=== PATIENT | male | born 1970 | race Caucasian/White ===

== ENCOUNTER 2017-05-03 14:25 | Emergency (ER) | payer SELFPAY ==
[2017-05-03] MEDS ORDERED: Ondansetron 4 MG/2 ML SDV IVPUSH ONE (14:43)
[2017-05-03] MEDS ORDERED: HYDROmorphone 1 MG/ML Syringe IVPUSH ONE ×2 (14:43→16:04)
[2017-05-03] MEDS ORDERED: Sodium Chloride 0.9% 10 ML Syringe FLUSH PRN (14:43)
[2017-05-03 15:00] VITALS: BP 149/106
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
--- NOTE | 2017-05-03 15:53 | CT ---
Head CT Technique: Multiple axial sections through the brain were obtained. Intravenous contrast was not utilized. Comparison: No previous intracranial imaging. Findings: Ventricles along with basal cisterns and sulci over the convexities are within normal limits for the patient's age. No abnormal parenchymal densities are seen. No evidence of intracranial hemorrhage. No midline shift or mass effect is seen. Bone window settings were reviewed which shows no discrete calvarial abnormality. Mild mucosal thickening is noted within portions of the ethmoid sinus and frontal sinus. Soft tissue swelling is noted within the right side of the face Impression: 1. Slight sinus findings which are likely incidental and chronic. Mild soft tissue swelling within the right side of the face. 2. No acute intracranial abnormality is identified on noncontrast head CT exam. Diagnostic code #2
--- NOTE | 2017-05-03 15:55 | CT ---
CT facial bones Technique: Multiple axial sections through the facial bones were obtained. Reconstructed coronal and sagittal images were reviewed. Findings: Mild mucosal thickening is seen within portions of the ethmoid and frontal sinuses. No air-fluid levels are seen within the paranasal sinuses. Right and left globes are symmetric. Soft tissue swelling is noted within the right periorbital region and within the right side of the face. No acute facial bone fracture is seen. Impression: 1. Soft tissue swelling as noted above. 2. No acute facial bone fracture is seen. 3. Slight mucosal thickening within the frontal and ethmoid sinuses likely relating to mild chronic sinusitis. Diagnostic code #2
--- NOTE | 2017-05-03 16:00 | CT ---
CT cervical spine Technique: Multiple axial sections were obtained from above C1 inferiorly to the bottom of T1. Reconstructed sagittal and coronal images were reviewed. Findings: Several small calcification seen off the posterior spinous processes which appear to be old. Minimal degenerative change is noted between the dens and anterior arch of C1. Vertebral body heights and disc spaces are maintained. Mastoid sinuses and middle ear cavities are clear. Posterior skull base is intact. No cervical spine fracture is identified. No abnormal subluxation is seen on the reconstructed sagittal images. Impression: 1. Nothing acute is appreciated on CT study of the cervical spine. Diagnostic code #2
--- NOTE | 2017-05-05 19:58 | CR ---
Chest: Two views of the chest were obtained. Comparison: No prior chest x-ray. Heart size and mediastinum are within normal limits. Lungs are clear. Bony structures are unremarkable for the patient's age. Impression: 1. Nothing acute is identified on two-view chest x-ray. Diagnostic code #1
--- NOTE | 2017-05-05 19:58 | CR ---
Left tibia and fibula: AP and lateral views of the left tibia and fibula were obtained. Spur again noted at the attachment of the Achilles tendon to the calcaneus. Joint spaces within the left knee are preserved. No acute fracture or other abnormality is seen. Impression: 1. Incidental calcaneal spur. Nothing acute is appreciated on left tibia and fibula study. Diagnostic code #2
--- NOTE | 2017-05-05 19:59 | CR ---
Left ankle: Four views of the left ankle were obtained. Comparison: No previous left ankle study. Spur noted at the attachment of the Achilles tendon to the calcaneus. Ankle mortise is symmetric. No acute fracture or other bony abnormality is identified. Impression: 1. Spur at the attachment of the Achilles tendon to the calcaneus. 2. Nothing acute is identified on left ankle study. Diagnostic code #2
== END 2017-05-03 17:35 | disposition home or self-care (01) ==
LOC: JD.ED 14:25
DX: S81.812A Laceration without foreign body, left lower leg, initial encounter (principal); S00.81XA Abrasion of other part of head, initial encounter; F17.210 Nicotine dependence, cigarettes, uncomplicated; V27.4XXA Motorcycle driver injured in collision with fixed or stationary object in traffic accident, initial encounter
CPT/HCPCS: 36415; 70450; 70486; 71020; 72125; 73590; 73610; 80048; 81003; 85025; 96374; 96375; 96376; 99285; J1170; J2405; J7050; 99283

== ENCOUNTER 2019-04-20 08:38 | Day surgery (SDC) | payer SELFPAY ==
[~2019-04-20 08:38] MED LIST: Lactated Ringers 1,000 ML IV SCH; Lidocaine 1%/Sod Bicarbonate in NS 8.4% 1 ML Syringe IDERM PRN; Sodium Chloride 0.9% 10 ML Syringe FLUSH PRN
[2019-04-20] MEDS ORDERED: Propofol 200 MG/20 ML SDV ONE ×5 (10:54→13:05)
[2019-04-20] MEDS ORDERED: Lidocaine 1% 4 ML ONE (10:54)
[2019-04-20] MEDS ORDERED: Albuterol 0.083% 2.5 MG/3 ML Neb Soln NEB ONE (11:21)
[2019-04-20] MEDS ORDERED: Albuterol 0.083% 2.5 MG/3 ML Neb Soln ONE (11:23)
--- NOTE | 2019-04-20 11:24 | PCM.PREANE ---
Preanesthetic Assessment - Anesthesia/Transfusion/Family Hx Anesthesia History: No Prior Anesthesia Transfusion History: No Prior Transfusion(s) Intubation History: Unknown - Review of Systems General: No Symptoms Pulmonary: Cough (Chronic, Daily smoker), Other Gastrointestinal: Abdominal Pain, Decreased Appetite, Nausea Neurological: Headache, Other Other: Reports: Anxiety (Insomnia) - Physical Assessment NPO Status Date: 04/19/19 NPO Status Time: 23:00 Vital Signs: Last Vital Signs Temp 36.3 C 04/20/19 10:45 Pulse 58 L 04/20/19 10:45 Resp 16 04/20/19 10:45 BP 119/90 04/20/19 10:45 Pulse Ox 98 04/20/19 10:45 Height: 1.85 m Weight: 82.1 kg ASA Class: 2 Mental Status: Alert & Oriented x3 Airway Class: Mallampati = 1 Dentition: Reports: Caries Thyro-Mental Finger Breadths: 3 Mouth Opening Finger Breadths: 3 ROM/Head Extension: Full Lungs: Normal Respiratory Effort (Expiratory wheezing noted ), Wheezing Cardiovascular: Regular Rate, Regular Rhythm - Allergies Allergies/Adverse Reactions: Allergies Allergy/AdvReac Type Severity Reaction Status Date / Time No Known Allergies Allergy Verified 04/17/19 15:07 - Anesthesia Plan Pre-Op Medication Ordered: Anxiolytic - Acknowledgements Anesthesia Type Planned: MAC Pt an Appropriate Candidate for the Planned Anesthesia: Yes Alternatives and Risks of Anesthesia Discussed w Pt/Guardian: Yes Pt/Guardian Understands and Agrees with Anesthesia Plan: Yes PreAnesthesia Questionnaire HEENT History: Reports: Allergic Rhinitis, Impaired Vision Cardiovascular History: Reports: Hypertension, Other (See Below) Other Cardiovascular History: Palpitations, Ectasis Aorta on CTA Respiratory History: Reports: None Gastrointestinal History: Reports: Cholelithiasis, Gastritis, GERD, Other (See Below) Other Gastrointestinal History: Unintentional Weight Loss, Epigastic Pain, Upper Abdominal Pain Genitourinary History: Reports: Other (See Below) Other Genitourinary History: Adrenal Adenoma Musculoskeletal History: Reports: Gout, Neck Pain, Chronic, Other (See Below) Other Musculoskeletal History: Chronic Pain, Neck Injury Neurological History: Reports: Concussion, Migraines Psychiatric History: Reports: Anxiety, Depression, Other (See Below) Other Psychiatric History: Alcohol abuse, Tobacco dependence, THC dependence, Insomnia Endocrine/Metabolic History: Reports: Other (See Below) Other Endocrine/Metabolic History: Unintentional weight loss Hematologic History: Reports: Other (See Below) Other Hematologic History: Leukocytosis Immunologic History: Reports: None Oncologic (Cancer) History: Reports: Other (See Below) Other Oncologic History: Adrenal Adenoma Dermatologic History: Reports: None - Past Surgical History Head Surgeries/Procedures: Reports: None HEENT Surgical History: Reports: Tonsillectomy Cardiovascular Surgical History: Reports: None Respiratory Surgical History: Reports: None GI Surgical History: Reports: Cholecystectomy, Hernia Repair/Other, Other (See Below) Other GI Surgeries/Procedures: Umbilical Hernia Male Surgical History: Reports: Vasectomy Neurological Surgical History: Reports: None Musculoskeletal Surgical History: Reports: Other (See Below) Other Musculoskeletal Surgeries/Procedures:: right knee ligament repair, hand surgery Oncologic Surgical History: Reports: None Dermatological Surgical History: Reports: None - SUBSTANCE USE Smoking Status *Q: Current Every Day Smoker Tobacco Use Within Last Twelve Months: Cigarettes Days Per Week of Alcohol Use: 3 Number of Drinks Per Day: 3 Total Drinks Per Week: 9 Recreational Drug Use History: Yes Recreational Drug Type: Reports: Marijuana/Hashish (Daily use for anxiety/ insomnia.) - HOME MEDS Home Medications: Home Meds Ibuprofen 600 mg PO Q6HR PRN 20 Days #100 tablet 02/18/19 [Rx] Omeprazole Magnesium [Prilosec Otc] 20 mg PO BID 02/18/19 [History] Ondansetron [Zofran] 8 mg PO Q8H PRN 02/18/19 [History] Acetaminophen [Tylenol] 650 mg PO Q4H PRN 04/17/19 [History] Naproxen Sodium [Aleve] 440 mg PO DAILY PRN 04/17/19 [History] Promethazine [Phenergan] 25 mg PO DAILY PRN 04/17/19 [History] Sertraline [Zoloft] 50 mg PO DAILY 04/17/19 [History] Sucralfate [Carafate] 1 gm PO DAILY 04/17/19 [History] Zolpidem Tartrate [Ambien] 5 mg PO BEDTIME PRN 04/17/19 [History] traMADol [Ultram] 50 mg PO Q6H PRN 04/17/19 [History] - CURRENT (IN HOUSE) MEDS Current Meds: Current Medications Lactated Ringer's (Ringers, Lactated) 1,000 mls @ 125 mls/hr IV ASDIRECTED TERRIE Stop: 04/20/19 23:00 Lidocaine/Sodium Bicarbonate (Buffered Lidocaine 1% In Ns 8.4%) 0.25 ml IDERM ONETIME PRN PRN Reason: Prior to IV Start Stop: 04/20/19 18:00 Sodium Chloride (Saline Flush) 10 ml FLUSH ASDIRECTED PRN PRN Reason: Keep Vein Open Stop: 04/20/19 18:00 Discontinued Medications Lidocaine HCl (Xylocaine-Mpf 1%) Confirm Administered Dose 4 mls @ as directed .ROUTE .STK-MED ONE Stop: 04/20/19 10:55 Propofol (Diprivan 20 Ml) Confirm Administered Dose 200 mg .ROUTE .STK-MED ONE Stop: 04/20/19 10:55
[2019-04-20] MEDS ORDERED: Midazolam Oral Soln 10 MG/5 ML Oral Syringe ONE (11:27)
[2019-04-20] MEDS ORDERED: fentaNYL 100 MCG/2 ML SDV ONE ×2 (11:28→13:04)
[2019-04-20] MEDS ORDERED: Ketamine 500 mg/10 ML MDV ONE (11:28)
[2019-04-20] MEDS ORDERED: Midazolam 1 MG/ML 2 ML SDV ONE (11:28)
[2019-04-20] MEDS ORDERED: Ondansetron 4 MG/2 ML SDV ONE (13:29)
--- NOTE | 2019-04-20 13:43 | PCM48HPAN ---
Post Anesthesia Note - EVALUATION WITHIN 48HRS OF ANESTHETIC Vital Signs in Normal Range: Yes Patient Participated in Evaluation: Yes Respiratory Function Stable: Yes Airway Patent: Yes Cardiovascular Function Stable: Yes Hydration Status Stable: Yes Pain Control Satisfactory: Yes Nausea and Vomiting Control Satisfactory: Yes Mental Status Recovered: Yes Vital Signs: Last Vital Signs
[2019-04-20 14:55] VITALS: BP 148/97; PULSE 52
--- NOTE | 2019-04-20 21:02 | OR ---
DATE OF OPERATION: 04/20/2019 SURGEON: Zita Godfrey MD PREOPERATIVE DIAGNOSIS: 1. Dysphagia. 2. Change in bowel habits. POSTOPERATIVE DIAGNOSIS: 1. Hiatal hernia, gastroesophageal junction scarring, otherwise normal esophagus. 2. Colonic polyps. OPERATION PERFORMED: 1. Esophagogastroduodenoscopy with biopsies. 2. Colonoscopy with polypectomy. 3. Hemorrhoid banding. ANESTHESIA: Monitored anesthesia. ESTIMATED BLOOD LOSS: Minimal. INDICATIONS AND CONSENT: The patient is a 48-year-old male who has developed epigastric pain, nausea, vomiting, and dysphagia for the past 7 months. Symptoms have been progressively getting worse. He has tried PPIs without any significant relief; therefore, he presented for evaluation of these symptoms. At the same time, the patient has been having alternating constipation and diarrhea. This was concerning for developing colonic problem. Therefore, EGD as well as colonoscopy were recommended for initial evaluation. The patient agreed to proceed with this procedure. After extensive discussion of risks, benefits, and alternatives, informed consent was obtained. DESCRIPTION OF PROCEDURE: The patient was taken to the procedure room, placed in left lateral decubitus position. Following induction of monitored anesthesia, we began the procedure with esophagogastroduodenoscopy. Scope was advanced through the vocal cords into the esophagus. The upper esophagus was notable for a visible aortic knob in the mid esophagus. There were no strictures. This was easily traversed all the way down into the stomach and to duodenum. The second portion of the duodenum was visualized. There were no abnormalities. Scope was withdrawn back into the antrum. The antrum was slightly erythematous. Therefore, a biopsy was taken for evaluation. Upon retroflexion, there was a medium sized hiatal hernia, and the stomach was sliding into the chest. This area had a whitish plaque on it resembling scar tissue from prior circumferential ulcer. This area was biopsied for pathology. Then, the scope was withdrawn slowly into the distal esophagus. There was no overt concern for esophagitis. However, this area was also biopsied for confirmation with pathology. Then the scope was slowly withdrawn, and the rest of the esophagus appeared to be normal. The patient was then prepared for colonoscopy. Colonoscope was brought into the field. Digital rectal exam revealed grade 3 hemorrhoids as well as a few skin tags. Then the scope was introduced into the rectum and advanced slowly all the way into the cecum without much difficulty. Upon withdrawal of the colonoscope, there was 1 polyp in the ascending colon that was biopsied with cold forceps as well as 1 rectal polyp likewise biopsied with cold forceps. The patient's prep was just adequate, and it required use of a lot of irrigation to be able to clearly visualize the mucosa. Upon retroflexion, there were significant hemorrhoids. Therefore, we proceeded with hemorrhoid banding. To do the hemorrhoid banding, the suction videogame tester was brought into the field. Speculum was inserted into the anal canal isolating the hemorrhoids. Suction banding was used to band the 2 hemorrhoids in the location of the left lateral and right posterior, and then the speculum was withdrawn. There was no immediate complication. This marked the end of the procedure. The patient was awoken from monitored anesthesia and taken to the recovery room for further recovery. The patient was instructed to be aware of short and long-term bleeding as well as pelvic infection and was instructed to take stool softeners, continue PPIs, sitz bath as well as Tylenol and Motrin for rectal discomfort. The patient will follow up with me in 2 weeks to discuss results of the pathologic specimens. Impression: - Antritis - Medium sized hiatal hernia with scarring. Biopsied - Mild esophagitis - Biopsied - One 0.6 mm polyp in cecum. Biopsied - One rectal polyp. Biopsied - Grade III hemorrhoids. Banded x 2 MMODAL /[id number] MTDD
== END 2019-04-20 14:42 | disposition home or self-care (01) ==
LOC: JD.SDS 08:38
PROVIDERS: ATTEND Surgery
DX: R19.5 Other fecal abnormalities (principal); K29.50 Unspecified chronic gastritis without bleeding; D12.4 Benign neoplasm of descending colon; K62.1 Rectal polyp; K44.9 Diaphragmatic hernia without obstruction or gangrene; K21.0 Gastro-esophageal reflux disease with esophagitis; M25.50 Pain in unspecified joint; I10 Essential (primary) hypertension; M10.9 Gout, unspecified; F41.9 Anxiety disorder, unspecified; F32.9 Major depressive disorder, single episode, unspecified; F17.210 Nicotine dependence, cigarettes, uncomplicated; Z79.899 Other long term (current) drug therapy
CPT/HCPCS: 43239; 45380; 45398; 94640; J2001; J2250; J2405; J2704; J3010; J7120; A9270-GY

== ENCOUNTER 2020-06-07 08:37 | Emergency (ER) | payer BC, OTHER ==
[2020-06-07 09:11] VITALS: BP 130/83
--- NOTE | 2020-06-07 09:23 | EDM.PDOC ---
ED HPI GENERAL MEDICAL PROBLEM - General Chief Complaint: Fever Stated Complaint: FEVER/COVID SYMPTOMS Time Seen by Provider: 06/07/20 09:14 Source of Information: Reports: Patient History Limitations: Reports: No Limitations - History of Present Illness INITIAL COMMENTS - FREE TEXT/NARRATIVE: 49-year-old male presents to the ED with acute onset of fever chills headache myalgia particular involving his lower back with loss of appetite and diarrhea stools x3 days. Paroxysmal minimally productive cough. No hemoptysis. Fever has been controlled with Tylenol and Motrin. Feels weak, lightheaded. Sleeping poorly due to back pain and cough. Objective dyspnea even at rest. 02 sats 97 to 98% on the monitor. Clinically patient has COVID-19 symptoms. Temperature of 102.3 last night 1-1.7 this morning. Last Tylenol dosage was about 0500 hrs. today. Onset: Sudden Onset Date: 06/04/20 Duration: Day(s):, Constant, Getting Worse Location: Reports: Chest, Generalized (Neurolyse myalgia and headache.), Other (Is minimal nonproductive cough rectocele with yellow diarrhea stools.) Quality: Reports: Ache (Generalized myalgia) Severity: Moderate Improves with: Reports: Medication (Along helps bring down the fever somewhat.) Worsens with: Reports: Other (TBD.) Treatments OUTSOLE BEVELER: Reports: Acetaminophen Headache Pain Score (Numeric/FACES): 4 - Related Data Allergies Allergy/AdvReac Type Severity Reaction Status Date / Time No Known Allergies Allergy Verified 04/17/19 15:07 Home Meds: Home Meds Ibuprofen 600 mg PO Q6HR PRN 20 Days #100 tablet 02/18/19 [Rx] Omeprazole Magnesium [Prilosec Otc] 20 mg PO BID 02/18/19 [History] Acetaminophen [Tylenol] 650 mg PO Q4H PRN 04/17/19 [History] Naproxen Sodium [Aleve] 440 mg PO DAILY PRN 04/17/19 [History] Promethazine [Phenergan] 25 mg PO DAILY PRN 04/17/19 [History] Sertraline [Zoloft] 50 mg PO DAILY 04/17/19 [History] Sucralfate [Carafate] 1 gm PO DAILY 04/17/19 [History] Zolpidem Tartrate [Ambien] 5 mg PO BEDTIME PRN 04/17/19 [History] traMADol [Ultram] 50 mg PO Q6H PRN 04/17/19 [History] Hydrocodone/Chlorphen P-Stirex [Hydrocodone-Chlorphen ER Susp] 5 ml PO Q12H PRN #60 ml 06/07/20 [Rx] Ondansetron [Zofran] 4 mg BUCCAL Q6H PRN #12 tab 06/07/20 [Rx] dexAMETHasone [Dexamethasone] 4 mg PO BID #10 tab 06/07/20 [Rx] Past Medical History HEENT History: Reports: Allergic Rhinitis, Impaired Vision Cardiovascular History: Reports: Hypertension, Other (See Below) Other Cardiovascular History: Palpitations, Ectasis Aorta on CTA Respiratory History: Reports: None Gastrointestinal History: Reports: Cholelithiasis, Gastritis, GERD, Other (See Below) Other Gastrointestinal History: Unintentional Weight Loss, Epigastic Pain, Upper Abdominal Pain Genitourinary History: Reports: Other (See Below) Other Genitourinary History: Adrenal Adenoma Musculoskeletal History: Reports: Gout, Neck Pain, Chronic, Other (See Below) Other Musculoskeletal History: Chronic Pain, Neck Injury Neurological History: Reports: Concussion, Migraines Psychiatric History: Reports: Anxiety, Depression, Other (See Below) Other Psychiatric History: Alcohol abuse, Tobacco dependence, THC dependence, Insomnia Endocrine/Metabolic History: Reports: Other (See Below) Other Endocrine/Metabolic History: Unintentional weight loss Hematologic History: Reports: Other (See Below) Other Hematologic History: Leukocytosis Immunologic History: Reports: None Oncologic (Cancer) History: Reports: Other (See Below) Other Oncologic History: Adrenal Adenoma Dermatologic History: Reports: None - Past Surgical History Head Surgeries/Procedures: Reports: None HEENT Surgical History: Reports: Tonsillectomy Cardiovascular Surgical History: Reports: None Respiratory Surgical History: Reports: None GI Surgical History: Reports: Cholecystectomy, Hernia Repair/Other, Other (See Below) Other GI Surgeries/Procedures: Umbilical Hernia Male Surgical History: Reports: Vasectomy Neurological Surgical History: Reports: None Musculoskeletal Surgical History: Reports: Other (See Below) Other Musculoskeletal Surgeries/Procedures:: right knee ligament repair, hand surgery Oncologic Surgical History: Reports: None Dermatological Surgical History: Reports: None Social & Family History - Family History Family Medical History: Noncontributory - Caffeine Use Caffeine Use: Reports: Coffee, Soda Other Caffeine Use: States one cup of coffee and one soda per day. - Living Situation & Occupation Living situation: Reports: with Significant Other Occupation: Employed ED ROS GENERAL - Review of Systems Review Of Systems: See Below Constitutional: Reports: Fever, Chills, Malaise, Weakness, Fatigue, Decreased Appetite HEENT: Reports: Throat Pain (Mild.) Respiratory: Reports: Shortness of Breath, Wheezing, Cough (No wheeze.), Sputum ( Ox is mild minimally productive cough). Denies: Hemoptysis ( no white sputum production) Cardiovascular: Reports: Chest Pain (Heaviness upper anterior chest.), Dyspnea on Exertion, Lightheadedness. Denies: Blood Pressure Problem, Claudication, Orthopnea Endocrine: Reports: Fatigue GI/Abdominal: Reports: Diarrhea, Decreased Appetite, Nausea (Yellow watery stools.) : Reports: Other ( urine is darker in color than normal.) Musculoskeletal: Reports: Muscle Pain (Generalized myalgia.) Skin: Reports: No Symptoms Neurological: Reports: Dizziness, Headache, Weakness Psychiatric: Reports: Depression Hematologic/Lymphatic: Reports: No Symptoms Immunologic: Reports: No Symptoms ED EXAM, GENERAL - Physical Exam Exam: See Below Exam Limited By: No Limitations General Appearance: Alert, WD/WN, No Apparent Distress, Other (He is generally flushed in appearance and does feel warm to palpation.) Eye Exam: Bilateral Eye: Normal Inspection, PERRL Throat/Mouth: Normal Inspection, Normal Lips, Normal Teeth, Normal Oropharynx Head: Atraumatic, Normocephalic Neck: Normal Inspection, Supple, Non-Tender, Full Range of Motion. No: Lymphadenopathy (L), Lymphadenopathy (R) Respiratory/Chest: Lungs Clear, Normal Breath Sounds (Kidney at rest.), No Accessory Muscle Use, Respiratory Distress Cardiovascular: Normal Peripheral Pulses, Regular Rate, Rhythm, No Edema, No Gallop, No Murmur Peripheral Pulses: 3+: Carotid (L), Carotid (R), Posterior Tibial (L), Posterior Tibial (R), Dorsalis Pedis (L), Dorsalis Pedis (R) GI/Abdominal: Normal Bowel Sounds, Soft, Non-Tender, No Organomegaly, No Abnormal Bruit, No Mass Back Exam: Normal Inspection, Full Range of Motion. No: CVA Tenderness (L), CVA Tenderness (R) Extremities: Normal Inspection, Normal Range of Motion, Non-Tender, No Pedal Edema Neurological: Alert, Oriented, CN II-XII Intact, Normal Cognition Psychiatric: Normal Affect, Normal Mood Skin Exam: Warm, Dry, Intact, Normal Color, No Rash Course - Vital Signs Last Recorded V/S: Last Vital Signs Temp 36.6 C 06/07/20 11:45 Pulse 75 06/07/20 11:45 Resp 20 06/07/20 11:45 BP 130/83 06/07/20 08:55 Pulse Ox 94 L 06/07/20 11:45 - Orders/Labs/Meds Orders: Active Orders 24 hr Category Date Time Status Chest 1V Frontal [CR] Stat Exams 06/07/20 09:25 Taken CORONAVIRUS COVID-19 PCR PHL Stat Lab 06/07/20 09:44 Received Labs: Laboratory Tests 06/07/20 06/07/20 06/07/20 Range/Units 09:41 09:41 09:41 WBC 9.85 H (4.23-9.07) K/mm3 RBC 4.58 L (4.63-6.08) M/mm3 Hgb 14.7 (13.7-17.5) gm/dl Hct 43.6 (40.1-51.0) % MCV 95.2 H (79.0-92.2) fl MCH 32.1 (25.7-32.2) pg MCHC 33.7 (32.2-35.5) g/dl RDW Std Deviation 47.6 H (35.1-43.9) fL Plt Count 276 (163-337) K/mm3 MPV 9.2 L (9.4-12.3) fl Neut % (Auto) 77.5 H (34.0-67.9) % Lymph % (Auto) 12.8 L (21.8-53.1) % [place] % (Auto) 6.0 (5.3-12.2) % Eos % (Auto) 2.8 (0.8-7.0) Baso % (Auto) 0.8 (0.1-1.2) % Neut # (Auto) 7.63 H (1.78-5.38) K/mm3 Lymph # (Auto) 1.26 L (1.32-3.57) K/mm3 [place] # (Auto) 0.59 (0.30-0.82) K/mm3 Eos # (Auto) 0.28 (0.04-0.54) K/mm3 Baso # (Auto) 0.08 (0.01-0.08) K/mm3 Sodium 141 (136-145) mEq/L Potassium 3.8 (3.5-5.1) mEq/L Chloride 104 (98-107) mEq/L Carbon Dioxide 27 (21-32) mEq/L Anion Gap 13.8 (5-15) BUN 16 (7-18) mg/dL Creatinine 1.2 (0.7-1.3) mg/dL Est Cr Clr Drug Dosing 85.08 mL/min Estimated GFR (MDRD) > 60 (>60) mL/min BUN/Creatinine Ratio 13.3 L (14-18) Glucose 113 H (74-106) mg/dL Calcium 9.1 (8.5-10.1) mg/dL Ferritin (26-388) ng/ml Total Bilirubin 0.5 (0.2-1.0) mg/dL AST 22 (15-37) U/L ALT 33 (16-63) U/L Alkaline Phosphatase 80 (46-116) U/L Lactate Dehydrogenase 152 (85-227) U/L Troponin I < 0.017 (0.00-0.056) ng/mL C-Reactive Protein 1.1 H* (<1.0) mg/dL Total Protein 6.7 (6.4-8.2) g/dl Albumin 3.5 (3.4-5.0) g/dl Globulin 3.2 gm/dL Albumin/Globulin Ratio 1.1 (1-2) 06/07/20 Range/Units 09:41 WBC (4.23-9.07) K/mm3 RBC (4.63-6.08) M/mm3 Hgb (13.7-17.5) gm/dl Hct (40.1-51.0) % MCV (79.0-92.2) fl MCH (25.7-32.2) pg MCHC (32.2-35.5) g/dl RDW Std Deviation (35.1-43.9) fL Plt Count (163-337) K/mm3 MPV (9.4-12.3) fl Neut % (Auto) (34.0-67.9) % Lymph % (Auto) (21.8-53.1) % [place] % (Auto) (5.3-12.2) % Eos % (Auto) (0.8-7.0) Baso % (Auto) (0.1-1.2) % Neut # (Auto) (1.78-5.38) K/mm3 Lymph # (Auto) (1.32-3.57) K/mm3 [place] # (Auto) (0.30-0.82) K/mm3 Eos # (Auto) (0.04-0.54) K/mm3 Baso # (Auto) (0.01-0.08) K/mm3 Sodium (136-145) mEq/L Potassium (3.5-5.1) mEq/L Chloride (98-107) mEq/L Carbon Dioxide (21-32) mEq/L Anion Gap (5-15) BUN (7-18) mg/dL Creatinine (0.7-1.3) mg/dL Est Cr Clr Drug Dosing mL/min Estimated GFR (MDRD) (>60) mL/min BUN/Creatinine Ratio (14-18) Glucose (74-106) mg/dL Calcium (8.5-10.1) mg/dL Ferritin 66 (26-388) ng/ml Total Bilirubin (0.2-1.0) mg/dL AST (15-37) U/L ALT (16-63) U/L Alkaline Phosphatase (46-116) U/L Lactate Dehydrogenase (85-227) U/L Troponin I (0.00-0.056) ng/mL C-Reactive Protein (<1.0) mg/dL Total Protein (6.4-8.2) g/dl Albumin (3.4-5.0) g/dl Globulin gm/dL Albumin/Globulin Ratio (1-2) Meds: Medications Discontinued Medications Generic Name Dose Route Start Last Admin Trade Name Freq PRN Reason Stop Dose Admin Acetaminophen 975 mg 06/07/20 09:33 06/07/20 09:58 Tylenol PO 06/07/20 09:34 975 mg ONETIME ONE Administration Dexamethasone 6 mg 06/07/20 11:20 06/07/20 11:36 Dexamethasone IVPUSH 06/07/20 11:21 6 mg ONETIME ONE Administration Dextrose/Lactated Ringer's 1,000 mls @ 999 mls/hr 06/07/20 09:30 06/07/20 09:41 Dextrose 5%-Lactated Ringers IV 999 mls/hr ASDIRECTED TERRIE Administration Ondansetron HCl 4 mg 06/07/20 09:32 06/07/20 10:00 Zofran IVPUSH 06/07/20 09:33 4 mg ONETIME ONE Administration - Radiology Interpretation Free Text/Narrative:: 49-year-old male presents to the ED with a 3-1/2-day history of acute illness with high fever, chills, headache, paroxysmal minimally productive cough. Associated anorexia and yellow diarrhea stools. Generalized weakness and lightheadedness. He is a smoker but has cut back and is currently using Nicorette gum. Clinically has signs and symptoms of COVID-19 illness. O2 sats are 97 to 98% on room air. COVID-19 screen will be done and sent to [facility] for evaluation. He will receive IV fluids D5 Ringer's lactate at open. Routine labs performed. Given Zofran 4 mg IV for nausea relief. Toradol 30 mg IV for headache and body ache relief. Now 975 mg p.o. for fever. - Re-Assessments/Exams Free Text/Narrative Re-Assessment/Exam: 06/07/20 10:36 White count is 9.85 with 77.5% neutrophils. Hemoglobin is 14.7 with hematocrit of 43.6. MCV is minimally elevated at 95.2. Platelet count is normal at 276,000. LDH is normal at 152 and troponin I is less than 0.017. Chest x-ray done portably reveals early groundglass appearance both lower lobes compatible with developing viral pneumonia. 06/07/20 11:08 Sodium is 141 with a potassium of 3.8. Chloride 104 with a bicarb of 27. Anion gap is 13.8. BUN is 16 with a creatinine of 1.2 and a GFR greater than 60. Glucose is 113 calcium is 9.1. Serum ferritin is normal at this time 66. Liver function is normal LDH is 152 troponin I is less than 0.017. C-reactive protein is 1.1. Total protein is 6.7. He will given Dexamethasone 6 mg IV. Be to discharge him home on dexamethasone 4 mg twice daily for 4 more days. Zofran 4 mg sublingual every 4 hours as needed for nausea relief. He is to stay on a clear fluid diet to prevent further diarrhea and no dairy product apple juice or grape juice to be taken orally until diarrhea has abated. He believes he has a pulse oximeter at home and will start to check his blood pressures. Note given to excuse him from work for the next 10 days. Departure - Departure Time of Disposition: 11:20 Disposition: Home, Self-Care 01 Condition: Fair Clinical Impression: COVID-19 - Discharge Information *PRESCRIPTION DRUG MONITORING PROGRAM REVIEWED*: Not Applicable *COPY OF PRESCRIPTION DRUG MONITORING REPORT IN PATIENT TEJAS: Not Applicable Prescriptions: dexAMETHasone [Dexamethasone] 4 mg PO BID #10 tab Hydrocodone/Chlorphen P-Stirex [Hydrocodone-Chlorphen ER Susp] 5 ml PO Q12H PRN #60 ml PRN Reason: Cough relief Ondansetron [Zofran] 4 mg BUCCAL Q6H PRN #12 tab PRN Reason: nausea or vomiting Instructions: COVID-19 Frequently Asked Questions, COVID-19, COVID-19: How to Protect Yourself and Others - [facility] Referrals: Velma Dejesus [employer] [Primary Care Provider] - Forms: ED Department Discharge, ED Return to Work/School Form Additional Instructions: Evaluation in the emergency room today in regards to development of fever, chills, headache, diffuse body ache associated with nausea and diarrhea with paroxysmal minimally productive cough. These are all signs and symptoms of COVID-19 illness. Chest x-ray done through the ED suggest a very early infiltrate developing in both lower lobes compatible with a viral pneumonitis. COVID-19 screen has been carried out and sent to public health and results will be available tomorrow. You should expect a phone call likely from us in the ED as well as public health tomorrow. Lab tests proved to be negative for any heart related illness. You were given a liter of IV fluids while in the ED. You were started on steroids dexamethasone 6 mg given intravenously. You will need to start oral dexamethasone tablets tomorrow morning 4 mg twice daily for the next 5 days. Cough syrup is to be Tussionex 5 mils every 12 hours as necessary for cough relief. Ideally 5 mils about an hour before bedtime will help relieve congestion and cough overnight. Zofran 4 mg under the tongue every 4-6 hours necessary for nausea relief. This is so that you can hopefully retain clear fluids such as Gatorade or Powerade ideally 2 bottles at least daily until appetite comes back. Should avoid all dairy products and no apple juice or grape juice until stools are formed back up. Off work for the next 10 days due to current illness as you are considered contagious to others for a minimum of 10 days considering that this is likely day 3-4 of current illness. Sepsis Event Note (ED) - Evaluation Sepsis Screening Result: No Definite Risk - Focused Exam Vital Signs: Vital Signs Temp Temp Pulse Resp BP Pulse Ox 06/07/20 11:45 36.6 C 75 20 94 L 06/07/20 09:58 97.4 C H 06/07/20 08:55 36.6 C 72 24 H 130/83 98 - My Orders Last 24 Hours: My Active Orders 06/07/20 09:25 Chest 1V Frontal [CR] Stat 06/07/20 09:44 CORONAVIRUS COVID-19 PCR PHL Stat - Assessment/Plan Last 24 Hours: My Active Orders 06/07/20 09:25 Chest 1V Frontal [CR] Stat 06/07/20 09:44 CORONAVIRUS COVID-19 PCR PHL Stat
[2020-06-07] MEDS ORDERED: Dextrose 5%-Lactated Ringers 1,000 ML IV SCH (09:30)
[2020-06-07] MEDS ORDERED: Ondansetron 4 MG/2 ML SDV IVPUSH ONE (09:32)
[2020-06-07] MEDS ORDERED: Acetaminophen 325 MG Tab PO ONE (09:33)
[2020-06-07] MEDS ORDERED: Dexamethasone 10 MG/ML SDV IVPUSH ONE (11:20)
[2020-06-07 11:51] VITALS: PULSE 75
--- NOTE | 2020-06-09 15:13 | CR ---
PROCEDURE INFORMATION: Exam: XR Chest, 1 View Exam date and time: 06/07/2020 9:23 AM Age: 49 years old Clinical indication: Right-sided chest pain; Patient HX: Fever, cough, suspected covid onset 2019 with right posterior cp TECHNIQUE: Imaging protocol: XR of the chest Views: 1 view. COMPARISON: OT Chest 1V Frontal 02/27/2019 10:54 PM FINDINGS: Lungs: Unremarkable. No consolidation. Pleural space: Unremarkable. No pleural effusion. No pneumothorax. Heart/Mediastinum: Unremarkable. No cardiomegaly. 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 IMPRESSION: No acute findings. Thank you for allowing us to participate in the care of your patient. Dictated and Authenticated by: Ernestina Hayden MD 06/07/2020 11:37 AM Central Time ([place] & [place]) [email or web address]
== END 2020-06-07 11:45 | disposition home or self-care (01) ==
LOC: JD.ED 08:37
DX: U07.1 COVID-19 (principal); I10 Essential (primary) hypertension; K21.9 Gastro-esophageal reflux disease without esophagitis; F41.9 Anxiety disorder, unspecified; F32.9 Major depressive disorder, single episode, unspecified; G43.909 Migraine, unspecified, not intractable, without status migrainosus; F17.220 Nicotine dependence, chewing tobacco, uncomplicated; Z79.899 Other long term (current) drug therapy; Z90.49 Acquired absence of other specified parts of digestive tract
CPT/HCPCS: 36415; 71045; 80053; 82728; 83615; 84484; 85025; 86140; 87635; 96374; 96375; 99285; A9270; J1100; J2405; J7121; 99284; U0002

== ENCOUNTER 2021-04-21 10:11 | Emergency (ER) | payer SELFPAY ==
[2021-04-21 10:19] VITALS: BP 139/115; PULSE 92
[2021-04-21] MEDS ORDERED: HYDROmorphone 0.5 MG/0.5 ML Syringe IVPUSH ONE (11:36)
[2021-04-21] MEDS ORDERED: cefTRIAXone 2 GM in Sodium Chloride 0.9% 100 ML IV ONE (11:36)
--- NOTE | 2021-04-21 11:45 | EDM.PDOC ---
ED HPI GENERAL MEDICAL PROBLEM - General Chief Complaint: Lower Extremity Injury/Pain Stated Complaint: KNEE PAIN Time Seen by Provider: 04/21/21 11:29 Source of Information: Reports: Patient, RN Notes Reviewed History Limitations: Reports: No Limitations - History of Present Illness INITIAL COMMENTS - FREE TEXT/NARRATIVE: Patient is a 50-year-old male who presents to the ER for the evaluation of bilateral knee pain. Patient works with concrete, and states that something went wrong with the slap that he was working on, and he had to kneel down quickly onto the slightly hardened wet cement, to try to fix this lab. This was Saturday. Notes that he had bilateral pain to his knees, that developed almost instantly after getting up due to the contact of the cement. There has been increasing redness and swelling that has been associated with this over the last few days. He has been using topical antibiotic treatments, and other rinses at home, but notes it does not seem to be helping. Patient states he has had this issue once in the past, and got "blood poisoning". He has had no fevers or chills, cough or shortness of breath, nausea/vomiting/diarrhea. He states there is pain in both knees, he had some leftover hydrocodone from a different injury, and has been taking some of those and notes that it has helped with the pain. Bilateral knees are both red, semi-swollen, with wounds in multiple stages of healing, they do appear to be contact frost from the cement. This does take up the whole entire anterior surface of both knees for the most part. Bilateral Knee Pain Score (Numeric/FACES): 8 - Related Data Allergies Allergy/AdvReac Type Severity Reaction Status Date / Time No Known Allergies Allergy Verified 04/21/21 10:20 Home Meds: Home Meds Ibuprofen 600 mg PO Q6HR PRN 20 Days #100 tablet 02/18/19 [Rx] Omeprazole Magnesium [Prilosec Otc] 20 mg PO BID 02/18/19 [History] Acetaminophen [Tylenol] 650 mg PO Q4H PRN 04/17/19 [History] Naproxen Sodium [Aleve] 440 mg PO DAILY PRN 04/17/19 [History] Promethazine [Phenergan] 25 mg PO DAILY PRN 04/17/19 [History] Sertraline [Zoloft] 50 mg PO DAILY 04/17/19 [History] Sucralfate [Carafate] 1 gm PO DAILY 04/17/19 [History] Zolpidem Tartrate [Ambien] 5 mg PO BEDTIME PRN 04/17/19 [History] traMADol [Ultram] 50 mg PO Q6H PRN 04/17/19 [History] Hydrocodone/Chlorphen P-Stirex [Hydrocodone-Chlorphen ER Susp] 5 ml PO Q12H PRN #60 ml 06/07/20 [Rx] Ondansetron [Zofran] 4 mg BUCCAL Q6H PRN #12 tab 06/07/20 [Rx] dexAMETHasone [Dexamethasone] 4 mg PO BID #10 tab 06/07/20 [Rx] Doxycycline [Vibramycin] 100 mg PO BID 10 Days #20 tab 04/21/21 [Rx] Hydrocodone/Acetaminophen [HYDROcodone-Acetaminophen 10-325 MG] 1 tab PO Q6H PRN #15 tablet 04/21/21 [Rx] Past Medical History HEENT History: Reports: Allergic Rhinitis, Impaired Vision Cardiovascular History: Reports: Hypertension, Other (See Below) Other Cardiovascular History: Palpitations, Ectasis Aorta on CTA Respiratory History: Reports: None Gastrointestinal History: Reports: Cholelithiasis, Gastritis, GERD, Other (See Below) Other Gastrointestinal History: Unintentional Weight Loss, Epigastic Pain, Upper Abdominal Pain Genitourinary History: Reports: Other (See Below) Other Genitourinary History: Adrenal Adenoma Musculoskeletal History: Reports: Gout, Neck Pain, Chronic, Other (See Below) Other Musculoskeletal History: Chronic Pain, Neck Injury Neurological History: Reports: Concussion, Migraines Psychiatric History: Reports: Anxiety, Depression, Other (See Below) Other Psychiatric History: Alcohol abuse, Tobacco dependence, THC dependence, Insomnia Endocrine/Metabolic History: Reports: Other (See Below) Other Endocrine/Metabolic History: Unintentional weight loss Hematologic History: Reports: Other (See Below) Other Hematologic History: Leukocytosis Immunologic History: Reports: None Oncologic (Cancer) History: Reports: Other (See Below) Other Oncologic History: Adrenal Adenoma Dermatologic History: Reports: None - Infectious Disease History Infectious Disease History: Reports: Chicken Pox - Past Surgical History Head Surgeries/Procedures: Reports: None HEENT Surgical History: Reports: Tonsillectomy Cardiovascular Surgical History: Reports: None Respiratory Surgical History: Reports: None GI Surgical History: Reports: Cholecystectomy, Hernia Repair/Other, Other (See Below) Other GI Surgeries/Procedures: Umbilical Hernia Male Surgical History: Reports: Vasectomy Neurological Surgical History: Reports: None Musculoskeletal Surgical History: Reports: Other (See Below) Other Musculoskeletal Surgeries/Procedures:: right knee ligament repair, hand surgery Oncologic Surgical History: Reports: None Dermatological Surgical History: Reports: None Social & Family History - Family History Family Medical History: No Pertinent Family History - Tobacco Use Tobacco Use Status *Q: Current Every Day Tobacco User Years of Tobacco use: 35 Packs/Tins Daily: 0.5 Second Hand Smoke Exposure: No - Caffeine Use Caffeine Use: Reports: Coffee Other Caffeine Use: States one cup of coffee and one soda per day. - Recreational Drug Use Recreational Drug Use: No - Living Situation & Occupation Living situation: Reports: with Significant Other Occupation: Employed Review of Systems - Review of Systems Review Of Systems: Comprehensive ROS is negative, except as noted in HPI. ED EXAM, GENERAL - Physical Exam Exam: See Below Exam Limited By: No Limitations General Appearance: Alert, WD/WN, No Apparent Distress Respiratory/Chest: No Respiratory Distress, Lungs Clear, Normal Breath Sounds, No Accessory Muscle Use, Chest Non-Tender Cardiovascular: Normal Peripheral Pulses, Regular Rate, Rhythm, No Edema Extremities: Normal Range of Motion, Normal Capillary Refill, Increased Warmth (to anterior bilateral knees), Redness (to anterior bilateral knees) Neurological: Alert, Oriented, Normal Cognition, No Motor/Sensory Deficits Psychiatric: Normal Affect, Normal Mood Skin Exam: Warm, Dry, Erythema (to anterior bilateral knees), Increased Warmth (to anterior bilateral knees) Course - Vital Signs Last Recorded V/S: Last Vital Signs Temp 97.7 F 04/21/21 10:18 Pulse 92 04/21/21 10:18 Resp 20 04/21/21 10:18 BP 139/115 H 04/21/21 10:18 Pulse Ox 93 L 04/21/21 10:18 - Orders/Labs/Meds Orders: Active Orders 24 hr Category Date Time Status BLOOD CULTURE [MREF] Stat Lab 04/21/21 10:30 Received BLOOD CULTURE [MREF] Stat Lab 04/21/21 10:40 Received cefTRIAXone [Rocephin] 2 gm Med 04/21/21 11:36 Ordered Sodium Chloride 0.9% [Normal Saline] 100 ml IV ONETIME Blood Culture x2 Reflex Set [OM.PC] Stat Oth 04/21/21 10:44 Ordered Medication Orders Ceftriaxone Sodium 2 gm/ (Sodium Chloride) 100 mls @ 200 mls/hr IV ONETIME ONE Stop: 04/21/21 12:05 Labs: Laboratory Tests 04/21/21 04/21/21 04/21/21 Range/Units 10:30 10:30 10:30 WBC 13.19 H (4.23-9.07) K/mm3 RBC 4.64 (4.63-6.08) M/mm3 Hgb 14.9 (13.7-17.5) gm/dl Hct 43.9 (40.1-51.0) % MCV 94.6 H (79.0-92.2) fl MCH 32.1 (25.7-32.2) pg MCHC 33.9 (32.2-35.5) g/dl RDW Std Deviation 48.2 H (35.1-43.9) fL Plt Count 286 (163-337) K/mm3 MPV 9.7 (9.4-12.3) fl Neut % (Auto) 74.4 H (34.0-67.9) % Lymph % (Auto) 13.0 L (21.8-53.1) % Butler % (Auto) 9.1 (5.3-12.2) % Eos % (Auto) 2.6 (0.8-7.0) Baso % (Auto) 0.7 (0.1-1.2) % Neut # (Auto) 9.83 H (1.78-5.38) K/mm3 Lymph # (Auto) 1.71 (1.32-3.57) K/mm3 Butler # (Auto) 1.20 H (0.30-0.82) K/mm3 Eos # (Auto) 0.34 (0.04-0.54) K/mm3 Baso # (Auto) 0.09 H (0.01-0.08) K/mm3 Sodium 137 (136-145) mEq/L Potassium 4.2 (3.5-5.1) mEq/L Chloride 103 (98-107) mEq/L Carbon Dioxide 25 (21-32) mEq/L Anion Gap 13.2 (5-15) BUN 16 (7-18) mg/dL Creatinine 0.8 (0.7-1.3) mg/dL Est Cr Clr Drug Dosing 126.23 mL/min Estimated GFR (MDRD) > 60 (>60) mL/min BUN/Creatinine Ratio 20.0 H (14-18) Glucose 101 H (70-99) mg/dL Lactic Acid 1.1 (0.4-2.0) mmol/L Calcium 8.5 (8.5-10.1) mg/dL Total Bilirubin 0.4 (0.2-1.0) mg/dL AST 33 (15-37) U/L ALT 32 (16-63) U/L Alkaline Phosphatase 76 (46-116) U/L C-Reactive Protein 4.0 H* (<1.0) mg/dL Total Protein 6.8 (6.4-8.2) g/dl Albumin 3.6 (3.4-5.0) g/dl Globulin 3.2 gm/dL Albumin/Globulin Ratio 1.1 (1-2) Meds: Medications Generic Name Dose Route Start Last Admin Trade Name Freq PRN Reason Stop Dose Admin Ceftriaxone Sodium 2 gm/ 100 mls @ 200 mls/hr 04/21/21 11:36 Sodium Chloride IV 04/21/21 12:05 ONETIME ONE Discontinued Medications Generic Name Dose Route Start Last Admin Trade Name Freq PRN Reason Stop Dose Admin Hydromorphone HCl 0.5 mg 04/21/21 11:36 Hydromorphone 0.5 Mg/0.5 Ml Syringe IVPUSH 04/21/21 11:37 ONETIME ONE - Re-Assessments/Exams Free Text/Narrative Re-Assessment/Exam: 04/21/21 11:43 Patient's labs were taken at time of triage, white count slightly elevated with elevated CRP, his knees do appear to have a cellulitis, with associated suspected contact burn from the concrete. We will go ahead and have the nurse do some wound management to his knee, will give him a dose of IV antibiotics, some pain medicines here, and we will start him on oral antibiotics and have him take pain medications as needed, and try to use ibuprofen, and perform good wound management over the weekend. We will have him take a picture of his knees at this time, so we can track the infectious/healing process. Departure - Departure Time of Disposition: 11:44 Disposition: Home, Self-Care 01 Condition: Good Clinical Impression: Cellulitis of right knee, Cellulitis of left knee Chemical burn of right knee Qualifiers: Encounter type: initial encounter Corrosion degree: unspecified degree Qualified Code(s): T24.421A - Corrosion of unspecified degree of right knee, ini tial encounter Chemical burn of left knee Qualifiers: Encounter type: initial encounter Corrosion degree: unspecified degree Qualified Code(s): T24.422A - Corrosion of unspecified degree of left knee, initial encounter - Discharge Information *PRESCRIPTION DRUG MONITORING PROGRAM REVIEWED*: Yes *COPY OF PRESCRIPTION DRUG MONITORING REPORT IN PATIENT TEJAS: No Prescriptions: Hydrocodone/Acetaminophen [HYDROcodone-Acetaminophen 10-325 MG] 1 tab PO Q6H PRN #15 tablet PRN Reason: Pain Doxycycline [Vibramycin] 100 mg PO BID 10 Days #20 tab Instructions: Chemical Burn, Adult, [id number], Cellulitis, Adult, [id number] Referrals: PCP,None [Primary Care Provider] - Additional Instructions: You were evaluated in the ER today for your bilateral knee pain. It does appear you have both a contact burn from the cement, and a skin infection called cellulitis. You been started on doxycycline, 1 tablet 2 times a day for the next 10 days for the cellulitis. This particular medication can make your skin extra sensitive to the sun, if you must need to be outside, either use sunscreen, or protect your skin from the sun. You were given a prescription for a strong pain medication, hydrocodone/acetaminophen 10/325 mg, please take 1 tab every 6 hours as needed for pain not relieved by Tylenol or ibuprofen alone. Please note this medication does contain Tylenol in it, so do not take more than 4000 mg in a 24- hour time span. These medications can be addictive, so please take as few as possible to achieve adequate pain control. These meds can also be quite constipating, recommend that you increase your oral fluid intake and take a stool softener like MiraLAX while taking these medications. Do not drive while taking this medication. Medication has been electronically sent to the [place] pharmacy located in [facility]. Highly and strongly recommend you use at least 600 mg ibuprofen every 6 hours as needed for ongoing inflammation as well. Do not exceed 3200 mg ibuprofen in a 24-hour time span. You may use topical bacitracin to the wounds, with nonstick gauze to provide dressings after you cleanse the wounds with warm soapy water. Highly and strongly recommend that you take a picture of your knees at this time, so that we can monitor the progress of healing. Also would strongly recommend you obtain a clinic appointment, early next week to make sure that everything is getting better as expected. Do not hesitate to return to the ER at any time if symptoms change or worsen. Sepsis Event Note (ED) - Focused Exam Vital Signs: Vital Signs Temp Pulse Resp BP Pulse Ox 04/21/21 10:18 97.7 F 92 20 139/115 H 93 L - My Orders Last 24 Hours: My Active Orders 04/21/21 10:30 BLOOD CULTURE [MREF] Stat 04/21/21 10:40 BLOOD CULTURE [MREF] Stat 04/21/21 10:44 Blood Culture x2 Reflex Set [OM.PC] Stat 04/21/21 11:36 cefTRIAXone [Rocephin] 2 gm Sodium Chloride 0.9% [Normal Saline] 100 ml IV ONETIME - Assessment/Plan Last 24 Hours: My Active Orders 04/21/21 10:30 BLOOD CULTURE [MREF] Stat 04/21/21 10:40 BLOOD CULTURE [MREF] Stat 04/21/21 10:44 Blood Culture x2 Reflex Set [OM.PC] Stat 04/21/21 11:36 cefTRIAXone [Rocephin] 2 gm Sodium Chloride 0.9% [Normal Saline] 100 ml IV ONETIME
== END 2021-04-21 12:45 | disposition home or self-care (01) ==
LOC: JD.ED 10:11
DX: T54.2X1A Toxic effect of corrosive acids and acid-like substances, accidental (unintentional), initial encounter (principal); T24.522A Corrosion of first degree of left knee, initial encounter; T24.521A Corrosion of first degree of right knee, initial encounter; L03.115 Cellulitis of right lower limb; L03.116 Cellulitis of left lower limb; I10 Essential (primary) hypertension; K21.9 Gastro-esophageal reflux disease without esophagitis; Z72.0 Tobacco use; Z79.899 Other long term (current) drug therapy; X58.XXXA Exposure to other specified factors, initial encounter; Y99.0 Civilian activity done for income or pay
CPT/HCPCS: 36415; 80053; 83605; 85025; 86140; 87040; 96365; 96375; 99284; J0696; J1170

== ENCOUNTER 2022-02-20 23:23 | Emergency (ER) | payer SELFPAY ==
[2022-02-20] MEDS ORDERED: Ondansetron 4 MG/2 ML SDV IVPUSH ONE (23:35)
[2022-02-20] MEDS ORDERED: Ondansetron 4 MG/2 ML SDV ONE (23:38)
[2022-02-21 04:16] VITALS: BP 118/88; PULSE 69
[2022-02-21] MEDS ORDERED: Doxycycline 100 MG Cap PO ONE (04:16)
== END 2022-02-21 05:00 | disposition home or self-care (01) ==
LOC: JD.ED 23:23
DX: J18.9 Pneumonia, unspecified organism (principal); F10.129 Alcohol abuse with intoxication, unspecified; I10 Essential (primary) hypertension; M10.9 Gout, unspecified; K21.9 Gastro-esophageal reflux disease without esophagitis; Z79.899 Other long term (current) drug therapy; Y90.1 Blood alcohol level of 20-39 mg/100 ml
CPT/HCPCS: 36415; 36600; 70450; 71045; 80053; 80306; 80307; 81003; 82803; 82947; 84484; 85025; 85379; 85610; 85730; 93005; 96374; 99285; A9270; J2405

== ENCOUNTER 2023-01-06 09:50 | Emergency (ER) | payer MEDICAID ==
[2023-01-06 10:07] VITALS: BP 135/94; PULSE 92
[2023-01-06] MEDS ORDERED: cefTRIAXone 1 GM Vial IM ONE (10:22)
[2023-01-06] MEDS ORDERED: Lidocaine 1% 2 ML ONE (11:19)
== END 2023-01-06 11:49 | disposition home or self-care (01) ==
LOC: JD.ED 09:50
DX: S61.451A Open bite of right hand, initial encounter (principal); I10 Essential (primary) hypertension; K21.9 Gastro-esophageal reflux disease without esophagitis; Z79.899 Other long term (current) drug therapy; F17.210 Nicotine dependence, cigarettes, uncomplicated; W54.0XXA Bitten by dog, initial encounter
CPT/HCPCS: 73130; 96372; 99283; J0696

== ENCOUNTER 2023-10-31 00:55 | Emergency (ER) | payer MEDICAID ==
[2023-10-31] MEDS ORDERED: Sodium Chloride 0.9% 10 ML Syringe FLUSH PRN (00:59)
[2023-10-31 01:29] LABS: BASOPHILS ABSOLUTE AUTO 0.1 K/mm3 (0.0-0.2); BASOPHILS PERCENT AUTO 1.3 % (0.0-1.0); EOSINOPHILS ABSOLUTE AUTO 0.1 K/mm3 (0.0-0.4); EOSINOPHILS PERCENT AUTO 2.1 % (0.0-6.0); HEMATOCRIT 37.5 % (42.0-52.0); HEMOGLOBIN 12.5 gm/dl (14.0-18.0); IMMATURE GRAN ABSOLUTE AUTO 0.01 K/mm3 (0.00-0.05); IMMATURE GRAN PERCENT AUTO 0.2 % (0.0-0.4); LYMPHOCYTES ABSOLUTE AUTO 1.1 K/mm3 (1.0-4.8); LYMPHOCYTES PERCENT AUTO 17.1 % (24.0-44.0); MEAN CORPUSCULAR HEMOGLOBIN 31.6 pg (28.0-32.0); MEAN CORPUSCULAR HGB CONC 33.3 g/dl (32.0-36.0); MEAN CORPUSCULAR VOLUME 94.7 fl (83.0-99.0); MONOCYTES ABSOLUTE AUTO 0.3 K/mm3 (0.0-0.8); MONOCYTES PERCENT AUTO 4.7 % (0.0-8.0); NEUTROPHILS ABSOLUTE AUTO 4.6 K/mm3 (1.8-7.7); NEUTROPHILS PERCENT AUTO 74.6 % (41.0-71.0); PLATELET COUNT,PLT 266 K/mm3 (150-400); RED BLOOD CELL COUNT 3.96 M/mm3 (4.52-5.90); WHITE BLOOD CELL COUNT,WBC 6.19 K/mm3 (3.9-11.3)
[2023-10-31 01:42] LABS: APPEARANCE,URINE CLEAR (Clear); BILIRUBIN,URINE NEGATIVE (Negative); COLOR,URINE YELLOW (Yellow); GLUCOSE,URINE NEGATIVE (Negative); KETONES,URINE NEGATIVE (Negative); LEUKOCYTE ESTERASE,URINE NEGATIVE (Negative); NITRITE,URINE NEGATIVE (Negative); OCCULT BLOOD,URINE TRACE-INTACT (Negative); PROTEIN,URINE NEGATIVE (Negative); UROBILINOGEN,URINE 0.2 (0.2-1.0)
[2023-10-31 01:52] LABS: A/G RATIO 1.2 (1-2); ALANINE AMINOTRANSFERASE,ALT 20 U/L (16-63); ALBUMIN 3.5 g/dl (3.4-5.0); ALKALINE PHOSPHATASE 72 U/L (46-116); ANION GAP 12.9 (5-15); ASPARTATE AMNIOTRANSFERASE,AST 13 U/L (15-37); BILIRUBIN TOTAL 0.2 mg/dL (0.2-1.0); BLOOD UREA NITROGEN,BUN 17 mg/dL (7-18); BUN/CREATININE RATIO 15.5 (14-18); CALCIUM 8.1 mg/dL (8.5-10.1); CARBON DIOXIDE,CO2 25 mEq/L (21-32); CHLORIDE,CL 101 mEq/L (98-107); CREATININE 1.1 mg/dL (0.7-1.3); ESTIMATED GFR 81 mL/min (>60); GLUCOSE RANDOM 134 mg/dL (70-99); MAGNESIUM 1.9 mg/dL (1.8-2.4); POTASSIUM,K 3.9 mEq/L (3.5-5.1); PROTEIN TOTAL,TP 6.5 g/dl (6.4-8.2); SODIUM,NA 135 mEq/L (136-145)
[2023-10-31 01:56] LABS: BARBITURATE SCREEN,URINE NEGATIVE (CUTOFF=200); BENZODIAZEPINES SCREEN,URINE NEGATIVE (CUTOFF=150); BUPRENORPHINE SCREEN,URINE NEGATIVE (CUTOFF=10); METHADONE SCREEN, URINE NEGATIVE (CUT0FF=200); METHAMPHETAMINES SCREEN, URINE NEGATIVE (CUTOFF=500); OXYCODONE SCREEN,URINE NEGATIVE (CUT0FF=100); THC SCREEN,URINE 20 NG/ML PRESUMPTIVE POSITIVE (CUTOFF=50)
[2023-10-31 01:57] LABS: BACTERIA,URINE NOT SEEN /hpf (FEW); EPITHELIAL CELLS,URINE 0-5 /hpf (0-5); MUCUS,URINE NOT SEEN /hpf (FEW); RBC,URINE NOT SEEN /hpf (0-5); WBC,URINE 0-5 /hpf (0-5)
[2023-10-31 01:59] LABS: AMPHETAMINES SCREEN, URINE NEGATIVE (CUTOFF=500)
[2023-10-31] MEDS: Iopamidol 612 MG/ML 30 ML SDV IVPUSH ONE (02:08)
[2023-10-31] MEDS: Iopamidol 755 Mg/ML 100 ML Bottle IVPUSH ONE (02:08)
[2023-10-31] MEDS: Sodium Chloride 0.9% 100 ML IV SCH (02:08)
[2023-10-31] MEDS: Enoxaparin 150 MG/1 ML Syringe SUBCUT ONE (02:28)
[2023-10-31] MEDS ORDERED: Naloxone 0.4 MG/ML SDV IVPUSH PRN (03:22)
[2023-10-31] MEDS: Morphine 4 MG/ML Syringe IVPUSH ONE (03:29)
[2023-10-31 06:16] VITALS: BP 118/80; PULSE 78
== END 2023-10-31 05:45 | disposition home or self-care (01) ==
LOC: JD.ED 00:55
DX: G45.9 Transient cerebral ischemic attack, unspecified (principal); F10.929 Alcohol use, unspecified with intoxication, unspecified; I10 Essential (primary) hypertension; K21.9 Gastro-esophageal reflux disease without esophagitis; Z79.899 Other long term (current) drug therapy
CPT/HCPCS: 36415; 70450; 70450-26; 70496; 70496-26; 70498; 70498-26; 71260; 71260-26; 74177; 74177-26; 80053; 80306; 80307; 81001; 82947; 83735; 85025; 93005; 93010; 93970; 93970-26; 96372; 99284; 99285; J1650; J3490; Q9967

== ENCOUNTER 2023-11-07 10:03 | Emergency (ER) | payer MEDICAID ==
[2023-11-07] MEDS: Iopamidol 755 Mg/ML 100 ML Bottle IVPUSH ONE (10:22)
[2023-11-07] MEDS: Sodium Chloride 0.9% 45 ML IV SCH (10:23)
[2023-11-07] MEDS: Sodium Chloride 0.9% 10 ML Syringe FLUSH PRN (10:23)
[2023-11-07 10:29] LABS: BASOPHILS ABSOLUTE AUTO 0.1 K/mm3 (0.0-0.2); BASOPHILS PERCENT AUTO 0.8 % (0.0-1.0); EOSINOPHILS ABSOLUTE AUTO 0.1 K/mm3 (0.0-0.4); HEMATOCRIT 40.7 % (42.0-52.0); HEMOGLOBIN 13.3 gm/dl (14.0-18.0); IMMATURE GRAN ABSOLUTE AUTO 0.05 K/mm3 (0.00-0.05); IMMATURE GRAN PERCENT AUTO 0.4 % (0.0-0.4); LYMPHOCYTES ABSOLUTE AUTO 1.6 K/mm3 (1.0-4.8); LYMPHOCYTES PERCENT AUTO 12.5 % (24.0-44.0); MEAN CORPUSCULAR HEMOGLOBIN 30.6 pg (28.0-32.0); MEAN CORPUSCULAR HGB CONC 32.7 g/dl (32.0-36.0); MEAN CORPUSCULAR VOLUME 93.8 fl (83.0-99.0); MEAN PLATELET VOLUME 8.9 fl (9.4-12.4); MONOCYTES ABSOLUTE AUTO 0.7 K/mm3 (0.0-0.8); MONOCYTES PERCENT AUTO 5.6 % (0.0-8.0); NEUTROPHILS ABSOLUTE AUTO 10.3 K/mm3 (1.8-7.7); NEUTROPHILS PERCENT AUTO 79.7 % (41.0-71.0); PLATELET COUNT,PLT 321 K/mm3 (150-400); RED BLOOD CELL COUNT 4.34 M/mm3 (4.52-5.90); WHITE BLOOD CELL COUNT,WBC 12.99 K/mm3 (3.9-11.3)
[2023-11-07 10:49] LABS: INR 0.97; PROTHROMBIN TIME 10.4 SECONDS (9.7-12.0)
[2023-11-07 10:50] LABS: PTT,PARTIAL THROMBOPLSTIN TIME 27.6 SECONDS (21.7-31.4)
[2023-11-07 10:53] LABS: A/G RATIO 1.1 (1-2); ALBUMIN 3.5 g/dl (3.4-5.0); ANION GAP 11.2 (5-15); BILIRUBIN TOTAL 0.2 mg/dL (0.2-1.0); CALCIUM 8.5 mg/dL (8.5-10.1); EST CRCL DRUG DOSING (CG) 98.77 mL/min; POTASSIUM,K 4.2 mEq/L (3.5-5.1); PROTEIN TOTAL,TP 6.7 g/dl (6.4-8.2)
[2023-11-07 12:05] VITALS: BP 139/78; PULSE 64
[2023-11-07] MEDS: Acetaminophen 325 MG Tab PO ONE (12:39)
== END 2023-11-07 14:42 | disposition home or self-care (01) ==
LOC: SUPCPDRO 10:03 → JD.ED 10:03
DX: G44.209 Tension-type headache, unspecified, not intractable (principal); R20.0 Anesthesia of skin; I10 Essential (primary) hypertension; K21.9 Gastro-esophageal reflux disease without esophagitis; Z79.899 Other long term (current) drug therapy; Z79.82 Long term (current) use of aspirin; Z79.02 Long term (current) use of antithrombotics/antiplatelets; Z86.73 Personal history of transient ischemic attack (TIA), and cerebral infarction without residual deficits
CPT/HCPCS: 36415; 70450; 70496; 70498; 70551; 71045; 80053; 80307; 82947; 84484; 85025; 85610; 85730; 93005; 99285; A9270; J3490; Q9967; 93010; 99284

== ENCOUNTER 2024-08-20 02:32 | Emergency (ER) | payer MEDICAID ==
[2024-08-20 02:52] VITALS: BP 166/95; PULSE 83
[2024-08-20] MEDS: Acetaminophen 325 MG Tab PO ONE (03:36)
== END 2024-08-20 06:20 | disposition home or self-care (01) ==
LOC: JD.ED 02:32
DX: S50.811A Abrasion of right forearm, initial encounter (principal); S00.411A Abrasion of right ear, initial encounter; I10 Essential (primary) hypertension; K21.9 Gastro-esophageal reflux disease without esophagitis; F17.210 Nicotine dependence, cigarettes, uncomplicated; Z86.16 Personal history of COVID-19; Z90.49 Acquired absence of other specified parts of digestive tract; Z79.899 Other long term (current) drug therapy; Z79.82 Long term (current) use of aspirin; W00.0XXA Fall on same level due to ice and snow, initial encounter
CPT/HCPCS: 70450; 73080; 73090; 99284; A9270

== ENCOUNTER 2024-09-16 23:13 | Emergency (ER) | payer MEDICAID ==
[2024-09-16] MEDS ORDERED: Sodium Chloride 0.9% 10 ML Syringe FLUSH PRN (23:20)
[2024-09-16 23:22] VITALS: BP 145/102; PULSE 83
[2024-09-16 23:24] LABS: BASOPHILS ABSOLUTE AUTO 0.1 K/mm3 (0.0-0.2); EOSINOPHILS ABSOLUTE AUTO 0.2 K/mm3 (0.0-0.4); EOSINOPHILS PERCENT AUTO 1.6 % (0.0-6.0); HEMATOCRIT 42.4 % (42.0-52.0); HEMOGLOBIN 13.8 gm/dl (14.0-18.0); IMMATURE GRAN ABSOLUTE AUTO 0.06 K/mm3 (0.00-0.05); IMMATURE GRAN PERCENT AUTO 0.4 % (0.0-0.4); LYMPHOCYTES ABSOLUTE AUTO 1.4 K/mm3 (1.0-4.8); LYMPHOCYTES PERCENT AUTO 10.2 % (24.0-44.0); MEAN CORPUSCULAR HEMOGLOBIN 28.9 pg (28.0-32.0); MEAN CORPUSCULAR HGB CONC 32.5 g/dl (32.0-36.0); MEAN CORPUSCULAR VOLUME 88.7 fl (83.0-99.0); MEAN PLATELET VOLUME 9.4 fl (9.4-12.4); MONOCYTES ABSOLUTE AUTO 0.8 K/mm3 (0.0-0.8); MONOCYTES PERCENT AUTO 5.6 % (0.0-8.0); NEUTROPHILS PERCENT AUTO 81.2 % (41.0-71.0); PLATELET COUNT,PLT 302 K/mm3 (150-400); RED BLOOD CELL COUNT 4.78 M/mm3 (4.52-5.90); WHITE BLOOD CELL COUNT,WBC 13.54 K/mm3 (3.9-11.3)
[2024-09-16] MEDS: Ondansetron 4 MG/2 ML SDV IVPUSH ONE (23:28)
[2024-09-16] MEDS: Morphine 4 MG/ML Syringe IVPUSH ONE (23:28)
[2024-09-16 23:45] LABS: ALBUMIN 3.5 g/dl (3.4-5.0); ANION GAP 14.1 (5-15); BILIRUBIN TOTAL 0.2 mg/dL (0.2-1.0); BUN/CREATININE RATIO 7.9 (14-18); CALCIUM 8.6 mg/dL (8.5-10.1); CREATININE 1.9 mg/dL (0.7-1.3); EST CRCL DRUG DOSING (CG) 52.88 mL/min; ETHANOL BLOOD MEDICAL 0.02 gm% (0.00); POTASSIUM,K 4.1 mEq/L (3.5-5.1); PROTEIN TOTAL,TP 6.9 g/dl (6.4-8.2)
[2024-09-17] MEDS: Lidocaine 1% 10 ML MDV ONE ×2 (00:21→03:00)
[2024-09-17] MEDS: Lidocaine 1% 50 ML MDV INJECT ONE (00:21)
[2024-09-17] MEDS ORDERED: Naloxone 0.4 MG/ML SDV IVPUSH PRN ×2 (00:58→05:21)
[2024-09-17] MEDS: Morphine 4 MG/ML Syringe IVPUSH ONE (01:07)
[2024-09-17] MEDS: Sodium Chloride 0.9% 1,000 ML IV ONE (02:27)
[2024-09-17] MEDS: HYDROmorphone 0.5 MG/0.5 ML Syringe IVPUSH ONE ×2 (02:28→02:52)
[2024-09-17] MEDS: cefTRIAXone 1 GM Vial IVPUSH ONE (02:30)
[2024-09-17] MEDS: Lidocaine 1% 10 ML MDV INJECT ONE ×2 (02:30→03:01)
[2024-09-17] MEDS: Diphtheria,Pertussis(Acell),Tetanus Vaccine 0.5 ML Syringe IM ONE (02:47)
[2024-09-17] MEDS: Nicotine 21 MG/24 Hr Patch TRDERM ONE (03:05)
[2024-09-17] MEDS ORDERED: Acetaminophen 325 MG Tab PO ONE (03:46)
[2024-09-17] MEDS: Acetaminophen/oxyCODONE 325-5 MG Tab PO ONE (04:01)
[2024-09-17] MEDS: Acetaminophen 325 MG Tab PO ONE (04:01)
[2024-09-17] MEDS: HYDROmorphone 1 MG/ML Syringe IVPUSH ONE (05:34)
[2024-09-17] MEDS ORDERED: Mupirocin Oint 22 GM Tube TOP SCH (09:00)
== END 2024-09-17 07:10 | disposition home or self-care (01) ==
LOC: JD.ED 23:13
DX: R55 Syncope and collapse (principal); S02.411A LeFort I fracture, initial encounter for closed fracture; S02.412A LeFort II fracture, initial encounter for closed fracture; S02.2XXA Fracture of nasal bones, initial encounter for closed fracture; I10 Essential (primary) hypertension; K21.9 Gastro-esophageal reflux disease without esophagitis; Z86.16 Personal history of COVID-19; Z90.49 Acquired absence of other specified parts of digestive tract; Z79.82 Long term (current) use of aspirin; Z79.51 Long term (current) use of inhaled steroids; Z79.899 Other long term (current) drug therapy; W22.8XXA Striking against or struck by other objects, initial encounter
CPT/HCPCS: 12014; 36415; 70450; 70486; 72125; 73030; 80053; 80307; 85025; 96361; 96374; 96375; 96376; 99285; A9270; J0696; J1171; J2270; J2405; J7030; 90471; J3490

== ENCOUNTER 2024-09-21 09:02 | Emergency (ER) | payer MEDICAID ==
[2024-09-21 10:05] VITALS: PULSE 75
[2024-09-21] MEDS: Acetaminophen/oxyCODONE 325-5 MG Tab PO ONE (10:55)
[2024-09-21 10:57] VITALS: BP 153/135
== END 2024-09-21 11:06 | disposition home or self-care (01) ==
LOC: JD.ED 09:02
DX: S02.412 LeFort II fracture (principal); S02.411D LeFort I fracture, subsequent encounter for fracture with routine healing; I10 Essential (primary) hypertension; R51.9 Headache, unspecified; Z79.899 Other long term (current) drug therapy; Z79.51 Long term (current) use of inhaled steroids; X58.XXXD Exposure to other specified factors, subsequent encounter
CPT/HCPCS: 99283; A9270

== ENCOUNTER 2025-04-06 14:26 | Emergency (ER) | payer SELFPAY ==
[2025-04-06 15:05] VITALS: BP 130/95
[2025-04-06] MEDS: Acetaminophen/HYDROcodone 325-5 MG Tab PO ONE (15:20)
[2025-04-06] MEDS: Ketorolac 60 MG/2 ML SDV IM ONE (15:20)
[2025-04-06 16:48] VITALS: PULSE 72
== END 2025-04-06 16:56 | disposition home or self-care (01) ==
LOC: JD.ED 14:26
DX: S16.1XXA Strain of muscle, fascia and tendon at neck level, initial encounter (principal); I10 Essential (primary) hypertension; K21.9 Gastro-esophageal reflux disease without esophagitis; Z79.899 Other long term (current) drug therapy; Z79.82 Long term (current) use of aspirin; Z86.16 Personal history of COVID-19; Z90.49 Acquired absence of other specified parts of digestive tract; X50.1XXA Overexertion from prolonged static or awkward postures, initial encounter
CPT/HCPCS: 72125; 96372; 99284; A9270; J1885; 99283